=== PATIENT | female | born 1985 | race Caucasian/White ===

== ENCOUNTER 2024-04-20 19:45 | Emergency (ER) | payer OTHER ==
[~2024-04-20] VITALS: Ht 162.6 cm; Wt 74.5 kg
[~2024-04-20 19:45] MED LIST: AMOXICILLIN AND1 TA2 PO; CEFDINIR300 MG PO; LEVO-T300 MCG PO; PREDNISONE20 MG PO; VIBRAMYCIN HYC100 MG PO; VYVANSE30 MG PO; YAZ 28 3 MG-0.01 TAB PO
[2024-04-20] MEDS ORDERED: LIOTHYRONINE SO5 MCG PO (20:03)
[2024-04-20] MEDS ORDERED: diphenhydrAMINE 25 MG CAP PO ONE (20:15)
[2024-04-20] MEDS ORDERED: NS 1,000 ML IV SCH (20:15)
[2024-04-20] MEDS ORDERED: Ketorolac 30 MG/ML VIAL IV ONE (20:15)
[2024-04-20] MEDS ORDERED: Acetaminophen 325 MG TAB PO ONE (20:15)
[2024-04-20 21:54] VITALS: BP 90/44
== END 2024-04-20 21:54 | disposition home or self-care (01) ==
LOC: ED 19:45
DX: M54.81 Occipital neuralgia (principal); J06.9 Acute upper respiratory infection, unspecified
CPT/HCPCS: J0780; J1885; J7030